=== PATIENT | male | born 1950 | race Caucasian/White ===

== ENCOUNTER → 2020-10-06 | Outpatient (CLI) | payer OTHER | LOC: KOH-I 11:24 | DX: N43.3 Hydrocele, unspecified (principal) | CPT/HCPCS: 76870 ==

== ENCOUNTER 2021-05-23 19:52 | Emergency (ER) | payer OTHER ==
[2021-05-23 21:37] LABS: HEMOGLOBIN 14.7 gm/dl (14.0-17.5); WHITE BLOOD COUNT 8.1 K/UL (4.5-11.0)
[2021-05-23 22:03] LABS: BUN/CREATININE RATIO 16 (0-10)
[2021-05-24] MEDS ORDERED: OMNICEF 300 MG300 MG PO (04:23)
== END 2021-05-24 04:45 | disposition home or self-care (01) ==
LOC: ER1 19:52
PROVIDERS: Physician Assistant Medical
DX: N39.0 Urinary tract infection, site not specified (principal); R31.9 Hematuria, unspecified; I10 Essential (primary) hypertension
CPT/HCPCS: 80053; 81001; 83605; 85025; 87040; 87086; 99284; Q9967

== ENCOUNTER → 2022-06-10 | Outpatient (CLI) | payer OTHER ==
[~2022-06-10] MED LIST: OMNICEF 300 MG300 MG PO
== END ==
LOC: KOH-I 05-28 10:30
DX: R10.11 Right upper quadrant pain (principal); K80.20 Calculus of gallbladder without cholecystitis without obstruction
CPT/HCPCS: 76705